=== PATIENT | female | born 1995 | race African-American/Black ===

== ENCOUNTER 2019-02-12 17:47 | Emergency (ER) | payer SELFPAY ==
[~2019-02-12] VITALS: Ht 162.6 cm; Wt 72.6 kg
--- OUTSIDE RECORDS SUMMARY | 2019-02-12 17:50 | XMS REPORT | Clinical Summary ---
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 Active ferrous sulfate 325 mg Take 1 tablet 90 tablet 3 (65 mg iron) by mouth 8 tabletIndications: Anemia daily (with in , first breakfast). trimester Active xrodulmmk-yfcskbyg-xvwegx Take 30 mL by 100 mL 1 quang-simethicone (MAALOX mouth every 4 9 +) 200 mg hours as SuspIndications: Bilious needed for vomiting with nausea Pain. Active famotidine (PEPCID) 40 mg Take 1 tablet 30 tablet 1 tabletIndications: by mouth 9 Bilious vomiting with daily. nausea Active acetaminophen (TYLENOL) Take 1 tablet 30 tablet 0 500 mg tabletIndications: by mouth 9 Bilious vomiting with every 6 hours nausea as needed for Pain. Active 1 mL diphenhydrAMINE Take 10 mL by 100 mL 1 syrup-1 mL lidocaine mouth 3 times 9 mucosal solution-1 mL daily. bfdroqnlv-zffpauin-ykfoub quang-simethicone oral suspension-CMPDIndication s: Bilious vomiting with nausea Active Electric Breast Use as 1 Each 0 PumpIndications: High directed. 9 risk , antepartum 03/19/2018 Discontinued OIS57-tkmp Take 1 tablet 180 Each 3 carb,tmo-FJ-EVD-dha 90 mg and 1 capsule 6 iron-1 mg -50 mg-300 mg by mouth CmpkIndications: daily. care, first trimester 03/19/2018 Discontinued vitamin Take 1 tablet 30 tablet 6 (PRENATABS RX) by mouth 6 tabletIndications: daily. care, second trimester 03/19/2018 Discontinued vitamin Take 1 tablet 30 tablet 6 tabletIndications: Rh by mouth 6 negative status during daily , third Pharmacist trimester, 32 weeks may select gestation of any Vitamin product covered on the patient's insurance for new rxs and refills. 03/19/2018 Discontinued MOSQUITO REPELLANT (OFF [place] 1 Bottle 11 DEEP [place]) topical topically as 6 sprayIndications: Rh directed for negative status during the , third prevention of trimester, 36 weeks Zika virus. gestation of 03/19/2018 Discontinued ibuprofen (MOTRIN) 800 mg Take 1 tablet 300 tablet 0 tabletIndications: by mouth 6 Vaginal delivery every 8 hours as needed for Pain. 03/26/2018 metroNIDAZOLE (FLAGYL) Take 1 tablet 14 tablet 0 500 mg tabletIndications: by mouth 2 8 Retained tampon, initial times daily encounter for 7 days. 06/28/2018 ondansetron (ZOFRAN) 8 mg Take 1 tablet 20 tablet 1 tabletIndications: Nausea by mouth 8 and vomiting during every 8 hours prior to 22 as needed for weeks gestation up to 3 days for Nausea. 11/15/2018 metroNIDAZOLE (FLAGYL) Take 1 tablet 21 tablet 0 250 mg tabletIndications: by mouth 3 9 BV (bacterial vaginosis) times daily for 7 days. 11/15/2018 terconazole (TERAZOL 7) Insert 1 45 g 0 0.4 % vaginal applicatorful 9 creamIndications: Yeast vaginally vaginitis every night at bedtime for 7 days.. 12/30/2018 ondansetron (ZOFRAN) 4 mg Take 1 tablet 20 tablet 0 tabletIndications: by mouth 9 Bilious vomiting with every 8 hours nausea as needed for up to 7 days for Nausea. 01/22/2019 docusate sodium (COLACE) Take 1 60 capsule 1 100 mg capsule by 9 capsuleIndications: mouth 2 times Bilious vomiting with daily for 60 nausea doses. Status Hospital, Clinic, or Ordered Dose Route Frequency Start End Date Other Facility Date Administered Medication Ended cefTRIAXone (ROCEPHIN) 250 mg IM ONCE 03/19/20 injection 250 18 8 mgIndications: Retained tampon, initial encounter Ended lidocaine 1 % (XYLOCAINE) 1 mL IJ ONCE 03/19/20 injection 1 18 8 mLIndications: Retained tampon, initial encounter Active Problems Problem Noted Date with 39 completed weeks gestation 02/06/2019 Resolved-BV (bacterial vaginosis) 11/08/2018 Overview: 11/08/18-RX for flagyl to pharmacy of choice 11/20/2018 Denies sx Resolved-Yeast vaginitis 11/08/2018 Overview: 11/08/18-Rx for terazol 11/20/2018 Denies sx Anemia in 06/28/2018 Overview: 09/03/18 Pt not taking PNV or iron, states it makes her nauseated. Counseled on risks of anemia 11/20/2018 Fe daily, CBC today 11/21/18-anemia worse, hemoglobin decreased; increased iron to three times daily 12/02/2018 Increase bid or tid as tolerated. Fe studies, Hg Fx Ferritin 10.60, Retic ct 3.4, Fe 21, TIBC 728, %sat 3, folic acid nl Hg Fx wnl 02/06/2019 Pt reports compliance with BID fe . Lapse in care from 33 weeks , now 39 weeks gestation Resolved-Nausea and vomiting during prior to 22 weeks gestation 06/25/2018 Overview: 06/25/18-RX for zofran with instructions; discussed vitamn B6, ER warnings 11/20/2018 Denies sx Rh negative status during 04/20/2016 Overview: 11/20/2018 27w6d T&S Bneg/ABS neg RTC 11/26/18 for Rhig 12/02/2018 29w4d Rhig given H/O Abnormal antibody titer 01/19/2016 Overview: Anti M Titer monthly and if >1:16 for Dopplers and MCA f/u 02/16/16 too weak to titer 06/25/2018 Antibody screen positive , Anti-M With no mention of titer . Will repeat Antibody screen in 1 month 07/16/2018 B RH ( -) , Antibody screen Negative , Comments from the Blood Bank , The antibody screening was negative at this time. However, titer for Anti M was still performed due to the order. In general, Anti M is an IgM, not clinial significant antibody, and will not cross placenta. Therefore, titer for Anti M will not be indicated 09/03/18 ABS neg 11/20/18 Neg Depression affecting , antepartum 01/19/2016 Overview: 06/25/18- denies depression, ER warnings 11/20/2018 Feeling depressed intermittently, occas crying spells, sadness. Denies S/H ideation. Accepts Beh Therapy referral. Imminent lab appt prevented administration of EPDS. 12/02/18 EPDS 9 Beh Therapy 12/04/18-desires rescheduling. Feeling sad due to injury of infant in her apt complex. Denies sx of depression. Seen by OB Sharif 12/30/18 Stats occasionally irritable and tearful, declines referral to behavioral health Anxiety disorder 10/26/2014 Overview: 06/25/18-some anxiety, able to cope, to notify clinic if becomes a problems 10/02/18-anxiety is under control Estimated Date of Delivery Comments Yes 02/13/2019 Based on last menstrual period of 05/09/2018 (Exact Date) Resolved Problems Problem Noted Date Resolved Date Refused influenza vaccine 12/02/2018 12/30/2018 BMI 28.0-28.9,adult 06/25/2018 09/03/2018 High-risk 06/25/2018 12/30/2018 Vaginal delivery 06/16/2016 06/25/2018 GBS (group B Streptococcus carrier), +RV culture, currently 05/22/2016 06/25/2018 care 11/16/2015 06/25/2018 Overview: Check for medical release papers, did she get them?? Encounters Care Team Description Date Type Specialty 02/11/2019 Travel Anderson-Grace Adames RN 02/11/2019 Nurse Triage Arminda Pineda CNM care in third trimester 02/07/2019 Orders Only Obstetrics Deanna Dumont CNM Harden, Monica E, CNM Anemia during in third trimester (Primary Dx); Rh negative status during in third trimester; Depression affecting , antepartum; with 39 completed weeks gestation 02/06/2019 OB Obstetrics 02/06/2019 Arminda Vazquez CNM care in third trimester (Primary Dx) 01/22/2019 Orders Only Obstetrics Deanna Dumont CNM Tigner, Caroline C, CNM High risk , antepartum (Primary Dx); Rh negative status during in third trimester; Anemia during in third trimester; Depression affecting , antepartum; 33 weeks gestation of 12/30/2018 OB Obstetrics Claudette Cristina MD Bilious vomiting with nausea (Primary Dx) 12/23/2018 Hospital Obstetrics Encounter 12/23/2018 Deanna Burkett CNM Scott, Moncellia Djuana, RN 12/02/2018 OBS Navigation Visit Deanna Dumont CNM Antepartum anemia (Primary Dx); 29 weeks gestation of ; Rh negative, antepartum; Depression affecting , antepartum; Refused influenza vaccine 12/02/2018 OB Obstetrics Deanna Dumont CNM Antepartum anemia; 29 weeks gestation of ; Rh negative, antepartum 12/02/2018 Orders Only Obstetrics 12/02/2018 Travel Verna Miller CNM Abnormal Labs (please have pt increase iron supplement to three times daily) 11/21/2018 Telephone Obstetrics Deanna Dumont CNM Rh negative, antepartum (Primary Dx); 27 weeks gestation of ; Depression affecting , antepartum; Antepartum anemia 11/20/2018 OB Obstetrics Deanna Dumont CNM , high-risk, second trimester; Rh negative, antepartum 11/20/2018 Lab Appointment Lab Deanna Dumont CNM Depression affecting , antepartum 11/20/2018 Orders Only Obstetrics Deanna Dumont CNM Rh negative, antepartum (Primary Dx); Antepartum anemia 11/20/2018 Orders Only Obstetrics Verna Miller CNM Abnormal Labs (has BV and yeast; will send flagyl 250mg po to be take three times daily and terazol vaginal cream to be used nightly x 7 nights) 11/08/2018 Telephone Verna Borges CNM 11/08/2018 Orders Only Obstetrics Deanna Dumont CNM Scott, Moncellia Djuana, RN 10/31/2018 OBS Navigation Visit Deanna Dumont, Verna Madrigal CNM , high-risk, second trimester (Primary Dx); Rh negative status during in second trimester; Anemia during in second trimester; 25 weeks gestation of ; Vaginal discharge in in second trimester 10/31/2018 OB Obstetrics 10/31/2018 Travel Deanna Dumont, Verna Madrigal, STEVEN Anemia during in second trimester (Primary Dx); Anxiety disorder, unspecified type; 20 weeks gestation of ; Rh negative status during in second trimester; 2014 Abnormal antibody titer M 2015 too week to titer and 06/25/18 positive Anti- M with no mention of titer 10/02/2018 OB Obstetrics 10/02/2018 Travel 09/30/2018 Eduarda Rojas, RN 09/30/2018 Nurse Triage Yonathan Rai MD Carpenter, Robert J Jr., MD screening for malformation using ultrasonics (Primary Dx); Anemia during in second trimester; , high-risk, second trimester; with 19 completed weeks gestation 09/19/2018 Office Visit Obstetrics Alejandra Haddad, RN 09/11/2018 Nurse Triage Deanna Dumont, Millie Weathers CNM Anemia during in second trimester (Primary Dx); 16 weeks gestation of 09/03/2018 OB Obstetrics 09/03/2018 Arminda Vazquez CNM Rh negative status during in second trimester (Primary Dx) 08/08/2018 Orders Only Obstetrics Arminda Pineda CNM Rh negative status during in first trimester (Primary Dx); Nausea and vomiting during prior to 22 weeks gestation; , high-risk, first trimester; with 12 completed weeks gestation; 2014 Abnormal antibody titer M 2015 too week to titer and 06/25/18 positive Anti- M with no mention of titer ; Anemia in , first trimester 08/06/2018 OB Obstetrics Elizabeth Madison MD Lucas, Michael J, MD care in first trimester (Primary Dx); Rh negative status during in first trimester 07/16/2018 Ancillary Radiology Procedure Verna Miller, Arminda Felton, STEVEN Anemia in , first trimester (Primary Dx); Abnormal antibody titer / 06/25/18 positive Anti-M , no mention of titer ; Rh negative status during in first trimester; Nausea and vomiting during prior to 22 weeks gestation; with 8 completed weeks gestation 07/09/2018 OB Obstetrics Arminda Pineda CNM Abnormal antibody titer / 06/25/18 positive Anti-M , no mention of titer 07/09/2018 Orders Only Obstetrics Arminda Pineda CNM Rh negative status during in first trimester (Primary Dx) 07/08/2018 Orders Only Obstetrics Verna Miller CNM Anemia (please call pt and have her buy ferrous sulfate 325mg tabs and take 1 daily) 06/28/2018 Telephone Verna Miller CNM , high-risk, first trimester 06/25/2018 Lab Appointment Lab Deanna Dumont CNM Hudgins, Margaret A, CNM , high-risk, first trimester (Primary Dx); BMI 28.0-28.9,adult; 6 weeks gestation of ; Nausea and vomiting during prior to 22 weeks gestation 06/25/2018 OB Obstetrics Jane Walker, [employer] Amenorrhea (Primary Dx) 06/17/2018 OB Samir Garrison MD Veloz, Jessica, TAINA Vaginal discharge (Primary Dx); Retained tampon, initial encounter; Subconjunctival hemorrhage of left eye 03/19/2018 Same Day Family Practice after 02/11/2018 Immunizations Name Administration Dates Next Due Rhogam 12/02/2018 Tdap (Tetanus Toxoid, 12/30/2018 Reduced Diphtheria Toxoid And Acellular Pertussis, Absorbed) Tdap Tetanus, diphtheria, 04/20/2016 acellular pertussis Vaccine Family History Medical History Relation Name Comments Hypertension Mother Stroke Mother Asthma Sister Relation Name Status Comments Brother Alive Brother Alive Father Alive Maternal Grandfather Maternal Grandmother Alive Mother Alive Paternal Grandfather Paternal Grandmother Alive Sister Alive Sister Alive Sister Alive Sister Social History Date Tobacco Use Types Packs/Day Years Used Never Smoker Smokeless Tobacco: Never Used Tobacco Cessation: Counseling Given: No Drinks/Week oz/Week Comments Alcohol Use 0 Standard drinks or equivalent 0.0 No Estimated Date of Delivery Comments Yes 02/13/2019 Based on last menstrual period of 05/09/2018 (Exact Date) Sex Assigned at Date Recorded Not on file Industry Job Start Date Occupation Not on file Not on file Not on file Travel End Travel History Travel Start No recent travel history available. Last Filed Vital Signs Reading Time Taken Comments Vital Sign 121/78 02/06/2019 1:56 PM CDT Blood Pressure 90 02/06/2019 1:56 PM CDT Pulse 36.9 C (98.5 F) 02/06/2019 1:56 PM CDT Temperature 20 02/06/2019 1:56 PM CDT Respiratory Rate 98% 12/23/2018 4:22 AM CDT Oxygen Saturation - - Inhaled Oxygen Concentration 83.5 kg (184 lb) 02/06/2019 1:56 PM CDT Weight 167.6 cm (5' 6") 02/06/2019 1:56 PM CDT Height 29.7 02/06/2019 1:56 PM CDT Body Mass Index Plan of Treatment Care Team Description Date Type Specialty 02/13/2019 Hospital Obstetrics Encounter confirmed 02/13/2019 Office Visit Obstetrics Health Maintenance Due Date Last Done Comments Cervical Cancer Scrn (3 01/28/2017 Yrs) HEMS OB HIV SCREENING Completed 12/30/2018, 06/25/2018, 04/20/2016, SERIES Additional history exists Procedures Comments Procedure Name Priority Date/Time Associated Diagnosis GROUP B STREP CULTURE Routine 02/07/2019 care in third 2:14 PM CDT trimester CHLAM/GC DNA AMPLI Routine 02/07/2019 care in third 2:14 PM CDT trimester SYPHILIS SCREEN FOR Routine 12/30/2018 High risk , INFECTION 2:57 PM CDT antepartum HIV-1/HIV-2 Routine 12/30/2018 High risk , SCREENING 2:57 PM CDT antepartum U/S ABDOMEN STAT 12/23/2018 Bilious vomiting with 9:25 AM CDT nausea UA CHEMISTRIES Routine 12/23/2018 5:20 AM CDT URINE DRUG SCREEN STAT 12/23/2018 5:20 AM CDT CBC/DIFF STAT 12/23/2018 4:30 AM CDT AMYLASE STAT 12/23/2018 4:30 AM CDT LIPASE STAT 12/23/2018 4:30 AM CDT COMPREHENSIVE METABOLIC STAT 12/23/2018 PANEL(DBIL NOT INCLUDED) 4:30 AM CDT RETIC COUNT Routine 12/02/2018 Antepartum anemia 2:32 PM CDT IRON PROFILE Routine 12/02/2018 Antepartum anemia 2:32 PM CDT HGB FRACTIONATION Routine 12/02/2018 Antepartum anemia 2:32 PM CDT FERRITIN Routine 12/02/2018 Antepartum anemia 2:32 PM CDT RBC FOLIC ACID Routine 12/02/2018 Antepartum anemia 2:27 PM CDT WORKUP (ABO, RH Routine 11/20/2018 Rh negative, antepartum AND SCREEN) 11:33 AM [employer]ASSWIND INSTRUMENT REPAIRER HEP C VIR AB IGG Routine 11/20/2018 , high-risk, 10:41 AM [employer] INSTRUMENT REPAIRER second trimester CBC Routine 11/20/2018 , high-risk, 10:41 AM [employer]WIND INSTRUMENT REPAIRER second trimester GLU 1 HR POST 50GM Routine 11/20/2018 , high-risk, 10:37 AM [employer]WIND INSTRUMENT REPAIRER second trimester WET MOUNT Routine 10/31/2018 Vaginal discharge in 2:10 PM [employer]WIND INSTRUMENT REPAIRER in second trimester NORMA STAIN Routine 10/31/2018 Vaginal discharge in 2:09 PM [employer]WIND INSTRUMENT REPAIRER in second trimester BT MFM Routine 09/19/2018 Anemia during REFERRAL-OUTPATIENT 8:43 AM [employer]WIND INSTRUMENT REPAIRER in second trimester WORKUP (ABO, RH Routine 09/03/2018 Anemia during AND SCREEN) 10:19 AM [employer]WIND INSTRUMENT REPAIRER in second trimester MATERNAL SERUM QUADRUPLE Routine 09/03/2018 Anemia during SCREEN( FEMALES OF 10:14 AM BRASSWIND INSTRUMENT REPAIRER in second trimester CHILDBEARING AGE ONLY) ANTIBODY TITER ( Routine 07/16/2018 Abnormal antibody titer / RELATED INDICATION) 1:48 PM CDT 06/25/18 positive Anti-M , no mention of titer BT MFM Routine 07/16/2018 Rh negative status during REFERRAL-OUTPATIENT 10:34 AM CDT in first trimester HIV-1/HIV-2 Routine 06/25/2018 , high-risk, SCREENING 12:18 PM CDT first trimester SYPHILIS SCREEN FOR Routine 06/25/2018 , high-risk, INFECTION 12:18 PM CDT first trimester CBC/DIFF Routine 06/25/2018 , high-risk, 12:18 PM CDT first trimester RUBELLA, IGG Routine 06/25/2018 , high-risk, 12:18 PM CDT first trimester HEP B HENNY AG Routine 06/25/2018 , high-risk, 12:18 PM CDT first trimester WORKUP (ABO, RH Routine 06/25/2018 , high-risk, AND SCREEN) 12:13 PM CDT first trimester URINE CULTURE Routine 06/25/2018 , high-risk, 12:13 PM CDT first trimester UA CHEMISTRIES Routine 06/25/2018 , high-risk, 12:12 PM CDT first trimester BTGH CYTOLOGY Routine 06/25/2018 11:15 AM CDT CHLAM/GC DNA AMPLI Routine 06/25/2018 , high-risk, 11:13 AM CDT first trimester POC URINE DIPSTICK, Routine 03/19/2018 Vaginal discharge WITHOUT MICRO 7:30 PM CDT CHLAM/GC DNA AMPLI Routine 03/19/2018 7:25 PM CDT TRICHOMONAS VAGINALIS Routine 03/19/2018 Vaginal discharge 7:25 PM CDT POC URINE Routine 03/19/2018 Vaginal discharge 7:16 PM CDT after 02/11/2018 Results * CHLAM/GC DNA AMPLI (02/07/2019 2:14 PM CDT) Only the most recent of 3 results within the time period is included. Chlamydia trach Negative BT DIAGNOSTIC IMMUNOLOGY N gonorrhoeae Negative BT DIAGNOSTIC This test utilizes [employer] Aptima Combo 2 Assay for target amplification of rRNA for the qualitative detection of Chlamydia trachomatis and Neisseria gonorrhea. Spec VAGINAL SWAB [facility] Description LAB Specimen Genital, vaginal - Vaginal Swab Performing Organization Address [facility] Phone Number MISYS BT DIAGNOSTIC IMMUNOLOGY [facility] * GROUP B STREP CULTURE (02/07/2019 2:14 PM CDT) Spec Vaginal_rectal [facility] Description LAB Order Comments None [facility] Culture No Group B Streptococcus BT MICROBIOLOGY isolated Report Status Final 02/12/2019 BT MICROBIOLOGY Specimen Genital - VAGINAL/RECTAL Performing Organization Address [facility] Phone Number MISYS [facility] BT MICROBIOLOGY * SYPHILIS SCREEN FOR INFECTION (12/30/2018 2:57 PM CDT) Only the most recent of 2 results within the time period is included. Treponemal Ab Negative BT DIAGNOSTIC IMMUNOLOGY Final Report Negative BT DIAGNOSTIC IMMUNOLOGY Specimen Performing Organization Address [facility] Phone Number MISYS BT DIAGNOSTIC IMMUNOLOGY * HIV-1/HIV-2 SCREENING (12/30/2018 2:57 PM CDT) Only the most recent of 2 results within the time period is included. HIV-1/HIV-2 Negative NEG BT OUTPATIENT DRAW 2 Specimen Performing Organization Address [facility] Phone Number MISYS BT OUTPATIENT DRAW 2 * U/S ABDOMEN (12/23/2018 9:25 AM CDT) Specimen Impressions Performed At IMPRESSION: SMS 1.Cholelithiasis and sludge and positive Fraga's sign, consistent with acute cholecystitis. 2.Mild hepatomegaly. Dictated By: Cristhian Massey DO, 12/23/2018 10:38 AM I have reviewed the study and agree with the findings in this report. Signed By: Bean Selby MD, 12/23/2018 3:36 PM Narrative Performed At EXAM: Complete Abdominal Ultrasound SMS INDICATION: RUQ pain, bilious emesis COMPARISON: None. TECHNIQUE: Transverse and longitudinal images of the upper abdomen were obtained. FINDINGS: Liver: Size: 17.0 cm in the right midclavicular line, enlarged. Appearance: Normal echogenicity, smooth contour Mass: No focal masses Spleen: Size: 12.0 cm in length, normal Echogenicity: Normal Mass: No focal masses Gallbladder: Stones/Sludge: Layering of dependent small stones near gallbladder neck producing posterior shadowing accompanied by sludge. Wall: 0.15 cm Appearance: No pericholecystic fluid or hydrops. Sonographic Fraga's Sign: Positive Bile Ducts: Intrahepatic Ducts: No dilatation Extrahepatic Ducts: Common bile duct measures 0.2 cm, no dilatation Pancreas: Visualized portions of the pancreatic head, neck and proximal body are normal. Right Kidney: Size:11.6 cm Echogenicity:Normal Parenchymal thickness: Normal Collecting System:Mild hydronephrosis Stone:None Cyst/Mass: None Left Kidney: Size: 11.6 cm Echogenicity:Normal Parenchymal thickness: Normal Collecting System:No hydronephrosis Stone:None Cyst/Mass: None Vessels: Aorta: Visualized portions are normal Inferior Vena Cava: Visualized portions are normal Main Portal Vein: 1.13 cm, normal size with hepatopetal flow. Free Fluid: No ascites or pleural effusion Procedure Note Interface, Rad/Mammog In - 12/23/2018 3:41 PM CDT EXAM: Complete Abdominal Ultrasound INDICATION: RUQ pain, bilious emesis COMPARISON: None. TECHNIQUE: Transverse and longitudinal images of the upper abdomen were obtained. FINDINGS: Liver: Size: 17.0 cm in the right midclavicular line, enlarged. Appearance: Normal echogenicity, smooth contour Mass: No focal masses Spleen: Size: 12.0 cm in length, normal Echogenicity: Normal Mass: No focal masses Gallbladder: Stones/Sludge: Layering of dependent small stones near gallbladder neck producing posterior shadowing accompanied by sludge. Wall: 0.15 cm Appearance: No pericholecystic fluid or hydrops. Sonographic Fraga's Sign: Positive Bile Ducts: Intrahepatic Ducts: No dilatation Extrahepatic Ducts: Common bile duct measures 0.2 cm, no dilatation Pancreas: Visualized portions of the pancreatic head, neck and proximal body are normal. Right Kidney: Size: 11.6 cm Echogenicity: Normal Parenchymal thickness: Normal Collecting System: Mild hydronephrosis Stone: None Cyst/Mass: None Left Kidney: Size: 11.6 cm Echogenicity: Normal Parenchymal thickness: Normal Collecting System: No hydronephrosis Stone: None Cyst/Mass: None Vessels: Aorta: Visualized portions are normal Inferior Vena Cava: Visualized portions are normal Main Portal Vein: 1.13 cm, normal size with hepatopetal flow. Free Fluid: No ascites or pleural effusion IMPRESSION IMPRESSION: 1. Cholelithiasis and sludge and positive Fraga's sign, consistent with acute cholecystitis. 2. Mild hepatomegaly. Dictated By: Cristhian Massey DO, 12/23/2018 10:38 AM I have reviewed the study and agree with the findings in this report. Signed By: Bean Selby MD, 12/23/2018 3:36 PM Performing Organization Address [facility]/[employer] Phone Number SMS * UA CHEMISTRIES (12/23/2018 5:20 AM CDT) Only the most recent of 2 results within the time period is included. Color Yellow BT MAIN-STATION 2 Clarity Cloudy BT MAIN-STATION 2 Spec Ambia 1.023 1.001 - 1.035 BT MAIN-STATION 2 pH 8.0 5 - 8 BT MAIN-STATION 2 Protein 2+ (A) NEG BT MAIN-STATION 2 Glucose Negative NEG BT MAIN-STATION 2 Ketone 1+ (A) NEG BT MAIN-STATION 2 Bilirubin Negative NEG BT MAIN-STATION 2 Nitrate Negative NEG BT MAIN-STATION 2 Urobilinogen 2.0 (H) 0.2 - 1.0 EU/dL BT MAIN-STATION 2 Leukocyte 3+ (A) NEG BT MAIN-STATION 2 Blood Negative NEG BT MAIN-STATION 2 RBC 29 (H) 0 - 4 /HPF BT MAIN-STATION 2 WBC 19 (H) 0 - 5 /HPF BT MAIN-STATION 2 Bacteria Many BT MAIN-STATION 2 Epithelial Cell 51 /HPF BT MAIN-STATION 2 Amorphous Sed Present BT MAIN-STATION 2 Mucous Present BT MAIN-STATION 2 Specimen Performing Organization Address [facility] Phone Number MISYS BT MAIN-STATION 2 * URINE DRUG SCREEN (12/23/2018 5:20 AM CDT) Amphetamine Negative NEG BT MAIN-STATION Comment: 1 Calibrated Standard: D-Methamphetamine Positive if urine level >jo=7297 ng/mL Test performed on [id number] using EMIT Immunoassay Barbiturate Negative NEG BT MAIN-STATION Comment: 1 Calibrated Standard: Secobarbital Positive if urine level is >ul=153 ng/mL Test performed on [id number] using [employer] Immunoassay Benzodiazepine Negative NEG BT MAIN-STATION Comment: 1 Calibrated Standard: Lormethazepam Positive if urine level is >nc=633 ng/mL Test performed on [id number] using [employer]IT Immunoassay Cannabinoid Negative NEG BT MAIN-STATION Comment: 1 Calibrated Standard: 11 nor-delta(9)-THC carboxylic a Positive if urine level >or=50 Test performed on [id number] using EMIT Immunoassay Cocaine Negative NEG BT MAIN-STATION Comment: 1 Calibrated Standard: Benzoylecgonine Positive if urine level >ug=893 Test performed on [id number] using EMIT Immunoassay Opiate, Ur Negative NEG BT MAIN-STATION Comment: 1 Calibrated Standard: Morphine Positive if urine level >pc=754 Test performed on [id number] using EMIT Immunoassay PCP Negative NEG BT MAIN-STATION Comment: 1 Calibrated Standard: Phencyclidine Positive if urine level >or=25 Test performed on [id number] using EMIT Immunoassay Urine Toxicology Screen results are to be used only for Medical purposes. Specimen Urine Performing Organization Address City/State/Zipcode Phone Number MISYS BT MAIN-STATION 1 * COMPREHENSIVE METABOLIC PANEL(DBIL NOT INCLUDED) (12/23/2018 4:30 AM CDT) Albumin 3.5 (L) 3.7 - 5.3 g/dL BT MAIN-STATION 1 Calcium 8.9 8.6 - 10.3 mg/dL BT MAIN-STATION 1 CO2 23 21 - 31 mmol/L BT MAIN-STATION 1 Chloride 104 98 - 107 mmol/L BT MAIN-STATION 1 Creatinine 0.50 (L) 0.6 - 1.2 mg/dL BT MAIN-STATION 1 Glucose 90 70 - 110 mg/dL BT MAIN-STATION 1 Alk Phos 86 34 - 104 U/L BT MAIN-STATION 1 Potassium 3.3 (L) 3.5 - 5.1 mmol/L BT MAIN-STATION 1 Sodium 137 136 - 145 mmol/L BT MAIN-STATION 1 ALT 12 7 - 52 U/L BT MAIN-STATION 1 AST 19 13 - 39 U/L BT MAIN-STATION 1 Urea Nitrogen 4 (L) 7 - 25 mg/dL BT MAIN-STATION 1 T Bilirubin 0.5 0.2 - 1.2 mg/dL BT MAIN-STATION 1 T Protein 6.9 6.0 - 8.3 g/dL BT MAIN-STATION 1 GFR, Estimated >60 mL/min/1.73 m2 BT MAIN-STATION 1 GFR, Estim, >60 mL/min/1.73 m2 BT MAIN-STATION Afr-Am 1 Anion Gap 10 BT MAIN-STATION 1 Specimen Blood Performing Organization Address City/State/Zipcode Phone Number [facility]ISYS BT MAIN-STATION 1 * LIPASE (12/23/2018 4:30 AM CDT) Lipase 49 11 - 82 U/L BT MAIN-STATION 1 Specimen Blood Performing Organization Address City/State/Zipcode Phone Number MISYS BT MAIN-STATION 1 * CBC/DIFF (12/23/2018 4:30 AM CDT) Only the most recent of 2 results within the time period is included. WBC 11.3 (H) 4.5 - 11.0 K/uL BT MAIN-STATION 2 RBC 3.46 (L) 4.20 - 5.40 M/uL BT MAIN-STATION 2 Hemoglobin 8.1 (L) 12.0 - 16.0 g/dL BT MAIN-STATION 2 Hematocrit 28.6 (L) 37.0 - 47.0 % BT MAIN-STATION 2 MCV 83 82 - 92 fL BT MAIN-STATION 2 MCH 23.4 (L) 27.0 - 32.0 pg BT MAIN-STATION 2 MCHC 28.3 (L) 32.0 - 36.0 g/dL BT MAIN-STATION 2 RDW 45.1 36.4 - 46.3 fL BT MAIN-STATION 2 Platelet 285 150 - 400 K/uL BT MAIN-STATION 2 Mean Platelet 9.4 9.4 - 12.4 fL BT MAIN-STATION Volume 2 Percent NRBC 0.0 BT MAIN-STATION 2 Absolute NRBC 0.00 BT MAIN-STATION 2 Neutrophil 59.2 34.0 - 70.0 % BT MAIN-STATION 2 Lymphocyte 29.9 20.0 - 50.0 % BT MAIN-STATION 2 Monocyte 6.6 5.0 - 12.0 % BT MAIN-STATION 2 Eosinophil 3.7 0.7 - 5.0 % BT MAIN-STATION 2 Basophil 0.2 0.1 - 1.2 % BT MAIN-STATION 2 Pct Immat Gran 0.4 0.0 - 0.5 BT MAIN-STATION 2 Neutrophil, Abs 6.67 (H) 1.56 - 6.13 K/uL BT MAIN-STATION 2 Lymphocyte, Abs 3.36 1.18 - 3.74 K/uL BT MAIN-STATION 2 Monocyte, Abs 0.74 (H) 0.24 - 0.36 K/uL BT MAIN-STATION 2 Eosinophil, Abs 0.42 (H) 0.04 - 0.36 K/uL BT MAIN-STATION 2 Basophil, Abs 0.02 0.01 - 0.08 K/uL BT MAIN-STATION 2 Absol Immat 0.04 (H) 0.00 - 0.03 K/uL BT MAIN-STATION Gran 2 Specimen Performing Organization Address [facility] Phone Number [facility] BT MAIN-STATION 2 * AMYLASE (12/23/2018 4:30 AM CDT) Amylase 64 29 - 103 U/L BT MAIN-STATION 1 Specimen Blood Performing Organization Address [facility] Phone Number [facility] BT MAIN-STATION 1 * FERRITIN (12/02/2018 2:32 PM CDT) Ferritin 10.60 (L) 11.0 - 306.8 ng/mL BT MAIN-STATION 1 Specimen Blood Performing Organization Address [facility] Phone Number [facility] BT MAIN-STATION 1 * RETIC COUNT (12/02/2018 2:32 PM CDT) Retic Count 3.4 (H) 0.5 - 1.7 % BT MAIN-STATION 2 Immature Retic 36.5 (H) 3.0 - 15.9 % BT MAIN-STATION 2 Ret Hgb 23.80 (L) 30.8 - 36.6 pg BT MAIN-STATION Equivalent 2 Absolute Retic 0.12 (H) 0.02 - 0.08 M/uL BT MAIN-STATION 2 Specimen Blood Performing Organization Address [facility] Phone Number [facility] BT MAIN-STATION 2 * IRON PROFILE (12/02/2018 2:32 PM CDT) Iron 21 (L) 50 - 212 ug/dL BT MAIN-STATION 1 TIBC 728 (H) 250 - 450 ug/dL BT MAIN-STATION 1 % Iron Sat 3 % BT MAIN-STATION 1 Specimen Blood Performing Organization Address [facility] Phone Number [facility] BT MAIN-STATION 1 * HGB FRACTIONATION (12/02/2018 2:32 PM CDT) Hemoglobin A 97.7 96.0 - 98.6 % BT BLOOD BANK Hemoglobin F None detected <2 % BT BLOOD BANK Hemoglobin S Absent % BT BLOOD BANK Hemoglobin A2 2.3 2.2 - 3.7 % BT BLOOD BANK Hemoglobin C Absent % BT BLOOD BANK Interpretation (note) BT BLOOD BANK Hemoglobin capillary electrophoresis and RBC indices are reviewed. NO VARIANT HEMOGLOBIN ORTHALASSEMIA DETECTED. Reviewed and electronically signed by: Josee Ferris MD/ [id number] CPT: 74106 Specimen Blood Performing Organization Address City/[facility] Phone Number [facility] * RBC FOLIC ACID (12/02/2018 2:27 PM CDT) Pathologist [facility] RBC Folic Acid 1401 LABORATORY Reference range: >498 [facility]PORATION OF Unit: ng/mL [facility] Hematocrit 27.8 LABORATORY Reference range: 34.0 to 46.6 [facility]PORATION OF Unit: % [facility] Folate, 389.6 LABORATORY Hemolysate Reference range: Not Estab. CORPORATION OF Unit: ng/mL [facility] Specimen Blood bag - BLOOD Performing Organization Address [facility] Phone Number [facility] [address] [place] [address] [place] 145 * HEP C VIR AB IGG (11/20/2018 10:41 AM [employer]ASS[employer] INSTRUMENT REPAIRER) Pathologist [facility] HCV IgG Negative NEG BT MAIN-STATION 3 Specimen Blood Performing Organization Address [facility] Phone Number [facility] BT MAIN-STATION 3 * CBC (11/20/2018 10:41 AM [employer] INSTRUMENT REPAIRER) WBC 11.4 (H) 4.5 - 11.0 K/uL BT MAIN-STATION 2 RBC 3.48 (L) 4.20 - 5.40 M/uL BT MAIN-STATION 2 Hemoglobin 8.4 (L) 12.0 - 16.0 g/dL BT MAIN-STATION 2 Hematocrit 29.8 (L) 37.0 - 47.0 % BT MAIN-STATION 2 MCV 86 82 - 92 fL BT MAIN-STATION 2 MCH 24.1 (L) 27.0 - 32.0 pg BT MAIN-STATION 2 MCHC 28.2 (L) 32.0 - 36.0 g/dL BT MAIN-STATION 2 RDW 44.6 36.4 - 46.3 fL BT MAIN-STATION 2 Platelet 350 150 - 400 K/uL BT MAIN-STATION 2 Mean Platelet 10.2 9.4 - 12.4 fL BT MAIN-STATION Volume 2 Percent NRBC 0.0 BT MAIN-STATION 2 Absolute NRBC 0.00 BT MAIN-STATION 2 Specimen Blood Performing Organization Address [facility] Phone Number [facility]IS[facility] BT MAIN-STATION 2 * GLU 1 HR POST 50GM (11/20/2018 10:37 AM [employer] INSTRUMENT REPAIRER) Glu 1Hr Post 96 <140 mg/dL BT MAIN-STATION 50gm 1 Specimen Blood Performing Organization Address [facility] Phone Number [facility] BT MAIN-STATION 1 * WET MOUNT (10/31/2018 2:10 PM [employer] INSTRUMENT REPAIRER) Spec Vaginal [facility] Description LAB Order Comments None [facility] Exam Clue cells present [facility] No Trichomonas seen LAB Yeast Epithelial cells Bacteria present Report Status Final 10/31/2018 [facility] Specimen Genital, vaginal - Vaginal Performing Organization Address [facility] Phone Number MISYS [facility] * NORMA STAIN (10/31/2018 2:09 PM [employer] INSTRUMENT REPAIRER) Spec Vaginal [facility] Description LAB Order Comments None [facility] Direct Exam Yeast [facility] Report Status Final 10/31/2018 [facility] Specimen Genital, vaginal - Vaginal Performing Organization Address [facility] Phone Number MISYS [facility] * BT MFM REFERRAL-OUTPATIENT (09/19/2018 8:43 AM [employer] INSTRUMENT REPAIRER) Only the most recent of 2 results within the time period is included. Specimen Narrative Performed At Click on View Image link for Result SMS Procedure Note Interface, Rad/Mammog In - 09/19/2018 9:58 AM [employer] INSTRUMENT REPAIRER Click on View Image link for Result Performing Organization Address City/[facility] Phone Number SMS * MATERNAL SERUM QUADRUPLE SCREEN( FEMALES OF CHILDBEARING AGE ONLY) (09/03/2018 10:14 AM [employer]ASS[employer] INSTRUMENT REPAIRER) . Report LABORATORY [facility] Test Results: *Screen Negative* LABORATORY [facility] Gestational Age 16.7 LABORATORY Unit: WEEKS [facility] Gest Age Based LMP LABORATORY On [facility] Maternal Age 23.0 LABORATORY SHANAE Unit: yr [facility] Race Black LABORATORY [facility] Weight 179 LABORATORY Unit: lbs [employer] [facility] Ins Dep No LABORATORY Diabetes [facility] Multiple No LABORATORY Gestation [facility] AFP Value 21.6 LABORATORY Unit: ng/mL [facility] AFP MoM 0.62 LABORATORY [facility] hCG Value 17845 LABORATORY Unit: mIU/mL [facility] hCG MoM 0.57 LABORATORY [facility] uE3 Value 1.15 LABORATORY Unit: ng/mL [employer] [facility] uE3 MoM 1.26 LABORATORY [facility] NICOLE Value 108.20 LABORATORY Unit: pg/mL [facility] NICOLE MoM 0.72 LABORATORY [facility] OSBR Risk 1 IN 10,000 LABORATORY [facility] DSR(2nd Trim)1 10,000 LABORATORY IN [employer] [facility] DSR (By Age) 1 1,103 LABORATORY IN [employer] [facility] T18 Risk 126043 Not increased LABORATORY [facility] T18 (By Age) 1:4296 LABORATORY [facility] Interpretation Comment LABORATORY (note) CORPORATION OF Interpretation: Screen [facility] Negative This result is screen negative for OSB, Down Syndrome and Trisomy 18. The AFP MoM and patient specific risks calculated are based on the gestational age and the clinical information provided. This test can identify up to 80% of open neural tube defects. Closed neural tube defects and some open defects may not be detected by this test.The combination of maternal age, AFP, hCG, uE3, and NICOLE identifies 75-80% of Down Syndrome.The combination of maternal age, AFP, hCG and uE3 identifies 60% of Trisomy 18 pregnancies.The [employer] recommends amniocentesis be offered to women age 35 and older. Recalculations are not recommended when gestational dating by LMP and ultrasound are within 10 days. Comment: Comment LABORATORY (note) Ana Malcolm, Ph.D., [facility] [employer] References: Available Upon Request. Multiples Of Median Cutoffs Abbreviation Definitions For AFP Elevations IDD- Insulin Dep Diabetes Singleton2.5 Black2.8 OSBR- Open Spina Bifida IDD2.0 Twins4.5 Risk DSR Cutoff 1:270 DSR- Down Syndrome Risk T18 Cutoff 1:100 T18- Trisomy 18 Down Syndrome and Trisomy 18 screening are considered Investigational For further inquiries contact [facility] at [phone]. Specimen Blood Performing Organization Address City/[facility]/Zipcode Phone Number [facility] [employer] [facility] OF [address] [place] [address] [place] 145 * HEP B HENNY AG (06/25/2018 12:18 PM CDT) HBsAg Negative NEG BT MAIN-STATION 3 Specimen Blood Performing Organization Address [facility] Phone Number [facility] BT MAIN-STATION 3 * RUBELLA, IGG (06/25/2018 12:18 PM CDT) Rubella, IgG 9.6 BT DIAGNOSTIC Non-Immune: < 0.9 IMMUNOLOGY Equivocal: 0.9-0.99 Immune: >or=1.0 Specimen Blood Performing Organization Address [facility] Phone Number [facility] BT DIAGNOSTIC IMMUNOLOGY * URINE CULTURE (06/25/2018 12:13 PM CDT) Spec Clean catch urine [facility] Description LAB Order Comments None [facility] Culture Resembles mixed uro-genital BT MICROBIOLOGY pawan Report Status Final 06/27/2018 BT MICROBIOLOGY Specimen Urine clean catch - CLEAN CATCH URINE Performing Organization Address [facility] Phone Number [facility] BT MICROBIOLOGY * BTGH CYTOLOGY (06/25/2018 11:15 AM CDT) HX FINAL Cervicovaginal (liquid-based COPATH DIAGNOSIS preparation): Satisfactory for evaluation Negative for intraepithelial lesion or malignancy Specimen Narrative Performed At [facility] Date of 1995 Hospital Number [id number] Location [place] [facility] ([facility] CYTOPATHOLOGY Collected:06/25/2018 11:15 Received: 06/26/2018 11:15 FINAL DIAGNOSIS Cervicovaginal (liquid-based preparation): Satisfactory for evaluation Negative for intraepithelial lesion or malignancy Electronically Signed Out By VANE Sultana (ASCP) Clinical History Date of Last Menstrual Period: 05/09/2018 Menstrual History: Pregnancies: A0 Specimen Received: One ThinPrep Vial Educational Note: The pap smear/test is a screening test for cervical cancer.As with screening procedures, both false negative and false positive results may occur.Hence, the results should be interpreted in the context of patient's history and current clinical information. The slide has been analyzed by the automated ThinPrep Imaging System, [employer], [place], [place]. Performing Organization Address City/State/[facility] Phone Number DEBI CARRERA [place], [place] * POC URINE DIPSTICK, WITHOUT MICRO (03/19/2018 7:30 PM CDT) Color POC Dark Yellow - - - Clarity POC Cloudy - - - Spec Ambia >=1.030 1.005 - 1.030 POC pH POC 6.0 5.0 - 7.0 Protein POC Trace Neg - Neg Glucose POC Neg Neg - Neg Ketone POC Trace Neg - Neg Bilirubin POC Neg Neg - Neg Nitrate POC Neg Neg - Neg Urobilinogen 1.0 0.2 - 1.0 EU/dL POC Leukocyte POC Neg Neg - Neg Blood POC 2+ Neg - Neg Specimen Urine * TRICHOMONAS VAGINALIS (03/19/2018 7:25 PM CDT) Trich Vaginalis Negative BT DIAGNOSTIC This test utilizes FDA cleared IMMUNOLOGY APTIMA Trichomonasvaginalis Assay by TMA from [employer] for qualitative nucleic acid amplification test (NAAT) for the detection of ribosome RNA (rRNA) from Trichomonas vaginalis. SPEC Urine BT MAIN-STATION DESCRIPTION 3 Specimen URETHRA Performing Organization Address City/[facility] Phone Number [facility] BT DIAGNOSTIC IMMUNOLOGY BT MAIN-STATION 3 * POC URINE (03/19/2018 7:16 PM CDT) POC Neg Neg - Neg Pass Pass - Pass Control Specimen Urine after 02/11/2018 Insurance Type Payer Benefit Subscriber ID Effective Phone Address Plan / Dates Group [employer] HMO [employer] xxxxxxxxx 2015-P [phone] [address] [address] [place] [address] Advance Directives Date Inactivated Comments Code Status Date Activated 06/16/2016 8:54 PM Full Code 06/15/2016 4:47 AM 06/15/2016 4:47 AM Full Code 06/14/2016 10:55 AM 06/14/2016 10:55 AM Full Code 06/14/2016 10:55 AM
--- OUTSIDE RECORDS SUMMARY | 2019-02-12 17:50 | XMS REPORT | Clinical Summary ---
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 tablet Active ferrous sulfate 325 (65 Take 325 mg 0 FE) MG tablet by mouth daily with breakfast. 10/27/2018 doxylamine-pyridoxine, Take 2 60 tablet 0 vit B6, (DICLEGIS) 10-10 tablets by 9 mg tablet,delayed release mouth daily (DR/EC) delayed release for 30 days. tablet 10/04/2018 nitrofurantoin, Take 1 14 capsule 0 macrocrystal-monohydrate, capsule (100 9 (MACROBID) 100 MG capsule mg total) by mouth 2 (two) times a day for 7 days. Active Problems Comments Yes No additional problems on file Encounters Care Team Description Date Type Specialty Santy Giullen MD Non-intractable vomiting with nausea, unspecified vomiting type (Primary Dx); Acute UTI; Intrauterine 09/27/2018 Emergency Emergency Medicine after 02/11/2018 Social History Date Tobacco Use Types Packs/Day Years Used Never Smoker Smokeless Tobacco: Never Used Alcohol Use Drinks/Week oz/Week Comments No Alcohol Habits Answer Date Recorded How often do you have a drink containing alcohol? Never 09/27/2018 How many drinks containing alcohol do you have on Not asked a typical day when you are drinking? How often do you have six or more drinks on one Not asked occasion? Comments Yes Sex Assigned at Date Recorded Not on file Industry Job Start Date Occupation Not on file Not on file Not on file Travel End Travel History Travel Start No recent travel history available. Last Filed Vital Signs Time Taken Vital Sign Reading 09/27/2018 6:33 AM DATA DEVELOPER Blood Pressure 118/56 09/27/2018 6:33 AM DATA DEVELOPER Pulse 87 09/27/2018 6:33 AM DATA DEVELOPER Temperature 36.7 C (98 F) 09/27/2018 6:33 AM DATA DEVELOPER Respiratory Rate 20 09/27/2018 6:33 AM DATA DEVELOPER Oxygen Saturation 98% - Inhaled Oxygen - Concentration 09/27/2018 4:54 AM DATA DEVELOPER Weight 77.1 kg (170 lb) 09/27/2018 4:54 AM DATA DEVELOPER Height 162.6 cm (5' 4") 09/27/2018 4:54 AM DATA DEVELOPER Body Mass Index 29.18 Plan of Treatment Not on file Procedures Comments Procedure Name Priority Date/Time Associated Diagnosis URINALYSIS STAT 09/27/2018 5:10 AM DATA DEVELOPER GRAM STAIN Routine 09/27/2018 5:00 AM DATA DEVELOPER URINE CULTURE Routine 09/27/2018 5:00 AM DATA DEVELOPER ESTIMATED GFR STAT 09/27/2018 4:50 AM DATA DEVELOPER COMPREHENSIVE METABOLIC STAT 09/27/2018 PANEL 4:50 AM DATA DEVELOPER HC COMPLETE BLD COUNT STAT 09/27/2018 W/AUTO DIFF 4:50 AM DATA DEVELOPER after 02/11/2018 Results * Urinalysis (09/27/2018 5:10 AM DATA DEVELOPER) Glucose, UA Negative Negative [facility] Bilirubin, UA Negative Negative [facility] Ketones, UA 3+ (A) Negative [facility] Specific =>1.030 1.001 - 1.035 [facility] gravity, UA [facility] Blood, UA Small (A) Negative [facility] pH, UA 6.5 5.0 - 8.5 [facility] Protein, UA 1+ (A) Negative [facility] Urobilinogen, 2.0 (A) <2.0 [facility] Nitrite, UA Negative Negative [facility] Leukocyte Small (A) Negative [facility] esterase, UA [facility] Color, UA Yellow [facility] Appearance, UA Sl Cloudy [facility] Specimen Urine Performing Organization Address City/State/Zipcode Phone Number DEPARTMENT [address] [facility], [place] [address] PATHOLOGY AND [employer] [address] [place] [address] LUCAS PEREIRA [address] [facility] [place] [address] EMERGENCY CARE CENTER * Gram stain (09/27/2018 5:00 AM DATA DEVELOPER) Gram stain No WBC's [facility] result Few Gram positive rods JAIN Comment: HOSPITAL Specimen Information Specimen Source: Urine Specimen Site: Urine, clean catch Specimen Urine - Urine, clean catch Performing Organization Address City/[facility] [place] [address] PATHOLOGY AND GENOMIC MEDICINE [place] [address] HOSPITAL * Urine culture (09/27/2018 5:00 AM DATA DEVELOPER) Pathologist [facility] Urine culture Mixed pawan 10-4 col/cc [facility] isolate Comment: [facility] Specimen Information HOSPITAL Specimen Source: Urine Specimen Site: Urine, clean catch Specimen Urine - Urine, clean catch Performing Organization Address City/[facility] Phone Number [facility] [place] [address] PATHOLOGY AND [facility] MEDICINE [place] [address] * Estimated GFR (09/27/2018 4:50 AM DATA DEVELOPER) Pathologist [facility] Estimated GFR >=90 mL/min/1.73 m2 [facility] Comment: LUCAS PEREIRA [facility] G1 >=90 Normal or high G2 60-89Mildly decreased [id number] Mildly to moderately decreased [id number] Moderately to severely decreased G4 15-29Severely decreased G5 <15Kidney failure The eGFR was calculated using the Chronic Kidney Disease Epidemiology Collaboration (CKD-EPI) equation. Interpretation is based on recommendations of the National Kidney Foundation-Kidney Disease Outcomes Quality Initiative (NKF-KDOQI) published in 2014. Specimen Plasma specimen Performing Organization Address City/State/Zipcode Phone Number DEPARTMENT [facility] [facility], [place] [address] PATHOLOGY AND GENOMIC [address] [facility] [address] [facility] [address] [place] [address] EMERGENCY CARE CENTER * CBC with platelet and differential (09/27/2018 4:50 AM DATA DEVELOPER) WBC 10.30 4.50 - 11.00 k/uL [facility] RBC 3.72 (L) 4.20 - 5.50 m/uL [facility] HGB 9.9 (L) 12.0 - 16.0 g/dL [facility] HCT 30.7 (L) 37.0 - 47.0 % [facility] MCV 82.5 82.0 - 100.0 fL [facility] MCH 26.6 (L) 27.0 - 34.0 pg [facility] MCHC 32.2 31.0 - 37.0 g/dL [facility] RDW - SD 37.9 37.0 - 55.0 fL [facility] MPV 8.9 8.8 - 13.2 fL [facility] Platelet count 286 150 - 400 k/uL [facility] Neutrophils 85.0 (H) 39.0 - 69.0 % [facility] Lymphocytes 8.8 (L) 25.0 - 45.0 % [facility] Monocytes 5.0 0.0 - 10.0 % [facility] Eosinophils 1.1 0.0 - 5.0 % [facility] Basophils 0.1 0.0 - 1.0 % [facility] Specimen Blood Performing Organization Address City/State/Zipcode Phone Number DEPARTMENT [address] [place] [address] PATHOLOGY [address] GENOMIC [address] [place], [place] [address] [facility] [address] [place] [address] EMERGENCY CARE CENTER * Comprehensive metabolic panel (09/27/2018 4:50 AM DATA DEVELOPER) Sodium 133 (L) 135 - 148 mEq/L [facility] Potassium 3.8 3.5 - 5.0 mEq/L [facility] Chloride 103 98 - 112 mEq/L [facility] CO2 20 (L) 24 - 31 mEq/L [facility] Anion gap 10@ANIO 7 - 15 mEq/L [facility] BUN 6 6 - 20 mg/dL [facility] Creatinine 0.52 0.50 - 0.90 mg/dL [facility] Glucose 101 (H) 65 - 99 mg/dL [facility] Calcium 9.1 8.3 - 10.2 mg/dL [facility] Protein 7.6 6.3 - 8.3 g/dL [facility] Albumin 3.6 3.5 - 5.0 g/dL [facility] A/G ratio 0.9 0.7 - 3.8 [facility] Alkaline 59 35 - 104 U/L [facility] phosphatase [facility] AST 17 10 - 35 U/L [facility] ALT 8 5 - 50 U/L [facility] Total bilirubin 0.7 0.0 - 1.2 mg/dL [facility] Specimen Plasma specimen Performing Organization Address City/State/Zipcode Phone Number [address] [address] PATHOLOGY AND GENOMIC [facility] MEDICINE, [facility] [address] [facility] [address] [place] [phone] EMERGENCY CARE CENTER after 02/11/2018 Insurance Type Payer Benefit Subscriber ID Effective Phone Address Plan / Dates Group HMO [employer] xxxxxxxxx [id number] [employer] resent [facility] Advance Directives Patient has advance care planning documents on file. For more information, gonsalo carpenter contact: [facility] [address] [place] [address]
--- OUTSIDE RECORDS SUMMARY | 2019-02-12 17:51 | XMS REPORT ---
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 Allergies, Adverse Reactions, Alerts Allergy Name Allergy Type Status Severity Reaction(s) Onset Date Inactive Date Treating Clinician Comments No Known Allergies DA Active U 2016-03-31 00:00:00 Medications This patient has no known medications. Encounters Start Date/Time End Date/Time Encounter Type Admission Type Attending [facility] Facility Care Department Encounter ID 2019-02-13 00:00:00 2019-02-13 00:00:00 Outpatient [facility] [id number] 2019-02-06 14:00:12 2019-02-06 14:00:12 Outpatient [facility] [id number] 2019-02-06 00:00:00 2019-02-06 00:00:00 Outpatient [facility] [id number] 2019-01-30 00:00:00 2019-01-30 00:00:00 Outpatient [facility] [id number] 2019-01-30 00:00:00 2019-01-30 00:00:00 Outpatient [facility] [id number] 2019-01-30 00:00:00 2019-01-30 00:00:00 Outpatient [facility] [id number] 2019-01-23 00:00:00 2019-01-23 00:00:00 Outpatient [facility] [id number] 2019-01-23 00:00:00 2019-01-23 00:00:00 Outpatient [facility] [id number] 2019-01-14 00:00:00 2019-01-14 00:00:00 Outpatient [facility] [id number] 2018-12-30 13:19:22 2018-12-30 13:19:22 Outpatient [facility] [id number] 2018-12-30 00:00:00 2018-12-30 00:00:00 Outpatient [facility] [id number] 2018-12-24 00:00:00 2018-12-24 00:00:00 Outpatient [facility] [id number] 2018-12-23 07:33:55 2018-12-23 07:33:55 Outpatient [facility] [id number] 2018-12-23 04:02:18 2018-12-23 04:02:18 Outpatient [facility] [id number] 2018-12-23 00:00:00 2018-12-23 00:00:00 Outpatient [facility] [id number] 2018-12-17 00:00:00 2018-12-17 00:00:00 Outpatient [facility] [id number] 2018-12-11 00:00:00 2018-12-11 00:00:00 Outpatient [facility] [id number] 2018-12-10 00:00:00 2018-12-10 00:00:00 Outpatient [facility] [id number] 2018-12-10 00:00:00 2018-12-10 00:00:00 Outpatient [facility] [id number] 2018-12-04 00:00:00 2018-12-04 00:00:00 Outpatient [facility] [id number] 2018-12-04 00:00:00 2018-12-04 00:00:00 Outpatient [facility] [id number] 2018-12-03 00:00:00 2018-12-03 00:00:00 Outpatient [facility] [id number] 2018-12-02 09:10:41 2018-12-02 09:10:41 Outpatient [facility] [id number] 2018-12-02 09:01:49 2018-12-02 09:01:49 Outpatient [facility] [id number] 2018-12-02 00:00:00 2018-12-02 00:00:00 Outpatient [facility] [id number] 2018-11-26 00:00:00 2018-11-26 00:00:00 Outpatient [facility] [id number] 2018-11-22 00:00:00 2018-11-22 00:00:00 Outpatient [facility] [id number] 2018-11-21 00:00:00 2018-11-21 00:00:00 Outpatient [facility] [id number] 2018-11-20 11:24:09 2018-11-20 11:24:09 Outpatient [facility] [id number] 2018-11-20 10:47:34 2018-11-20 10:47:34 Outpatient [facility] [id number] 2018-11-20 00:00:00 2018-11-20 00:00:00 Outpatient [facility] [id number] 2018-11-04 00:00:00 2018-11-04 00:00:00 Outpatient [facility] [id number] 2018-10-31 10:13:22 2018-10-31 10:13:22 Outpatient [facility] [id number] 2018-10-31 10:10:03 2018-10-31 10:10:03 Outpatient [facility] [id number] 2018-10-30 00:00:00 2018-10-30 00:00:00 Outpatient [facility] [id number] 2018-10-30 00:00:00 2018-10-30 00:00:00 Outpatient [facility] [id number] 2018-10-02 13:50:55 2018-10-02 13:50:55 Outpatient [facility] [id number] 2018-10-01 00:00:00 2018-10-01 00:00:00 Outpatient [facility] [id number] 2018-09-19 08:43:08 2018-09-19 08:43:08 Outpatient [facility] [id number] 2018-09-03 07:45:17 2018-09-03 07:45:17 Outpatient [facility] [id number] 2018-09-02 00:00:00 2018-09-02 00:00:00 Outpatient [facility] [id number] 2018-08-06 11:15:09 2018-08-06 11:15:09 Outpatient [facility] [id number] 2018-07-16 10:34:12 2018-07-16 10:34:12 Outpatient [facility] [id number] 2018-07-16 00:00:00 2018-07-16 00:00:00 Outpatient [facility] [id number] 2018-07-09 10:53:02 2018-07-09 10:53:02 Outpatient [facility] [id number] 2018-06-28 00:00:00 2018-06-28 00:00:00 Outpatient [facility] [id number] 2018-06-25 12:10:52 2018-06-25 12:10:52 Outpatient [facility] [id number] 2018-06-25 10:59:53 2018-06-25 10:59:53 Outpatient [facility] [id number] 2018-06-17 09:46:19 2018-06-17 09:46:19 Outpatient [facility] [id number] 2018-06-17 00:00:00 2018-06-17 00:00:00 Outpatient [facility] [id number] 2018-04-04 00:00:00 2018-04-04 00:00:00 Outpatient [facility] [id number] 2018-03-19 18:53:23 2018-03-19 18:53:23 Outpatient [facility] [id number]
[2019-02-12] MEDS ORDERED: SODIUM CHLORIDE 0.9% 1000ML 2,000 ML ONE (17:57)
[2019-02-12] MEDS ORDERED: LIDOCAINE 2%/ EPINEPHRINE 20ML MDV ONE (18:11)
[2019-02-12] MEDS ORDERED: ONDANSETRON HCL INJ 2MG/ML 2ML 2 MG/ML VIAL IV ONE (18:35)
[2019-02-12] MEDS ORDERED: MORPHINE SULFATE INJ 4 MG/ML INJ 1ML ONE (18:42)
[2019-02-12] MEDS ORDERED: ONDANSETRON HCL INJ 2MG/ML 2ML 2 MG/ML VIAL ONE (18:43)
[2019-02-12] MEDS ORDERED: MORPHINE SULFATE INJ 4 MG/ML INJ 1ML IV ONE (18:45)
[2019-02-12] MEDS ORDERED: MORPHINE SULFATE 5 MG/ML VIAL IV ONE (18:45)
[2019-02-12] MEDS ORDERED: OXYTOCIN INJ 10 UNIT/ML VIAL IV ONE (19:00)
[2019-02-12 19:04] LABS: BASOPHILS % 0.2 % (0.0-1.0); EOSINOPHILS # (AUTO) 0.1 (0.0-0.4); EOSINOPHILS % 0.4 % (0.0-6.0); LYMPHOCYTES # (AUTO) 2.7 (1.0-3.2); LYMPHOCYTES % 23.1 % (18.0-39.1); MEAN CORPUSCULAR HEMOGLOBIN 22.2 pg (28-32); MEAN CORPUSCULAR VOLUME 73.9 fL (81-99); MONOCYTES # (AUTO) 0.5 (0.2-0.8); MONOCYTES % 4.1 % (4.4-11.3); NEUTROPHILS # (AUTO) 8.3 (2.1-6.9); NEUTROPHILS % 71.7 % (38.7-80.0); PLATELET COUNT 372 x10e3/uL (140-360); RED BLOOD COUNT 4.06 x10e6/uL (3.6-5.1); RED CELL DISTRIBUTION WIDTH 17.2 % (11.7-14.4)
[2019-02-12 19:17] LABS: ALANINE AMINOTRANSFERASE 27 IU/L (0-55); ALBUMIN 2.9 g/dL (3.5-5.0); ALBUMIN/GLOBULIN RATIO 0.6 (0.8-2.0); ALKALINE PHOSPHATASE 167 IU/L (40-150); ANION GAP 14.2 mmol/L (8-16); BLOOD UREA NITROGEN < 5 mg/dL (7-26); CALCIUM 9.3 mg/dL (8.4-10.2); CARBON DIOXIDE 19 mmol/L (22-29); CHLORIDE 104 mmol/L (98-107); CREATININE, SERUM 0.67 mg/dL (0.57-1.11); EST GLOMERULAR FILTRATION RATE > 60 ML/MIN (60-); GLUCOSE 103 mg/dL (74-118); POTASSIUM 3.2 mmol/L (3.5-5.1); SODIUM 134 mmol/L (136-145)
[2019-02-12 19:20] LABS: BUN/CREATININE RATIO 7 (6-25)
== END 2019-02-12 19:45 | disposition other institution (70) ==
LOC: ER 17:47
DX: O80 Encounter for full-term uncomplicated delivery (principal); Z3A.40 40 weeks gestation of pregnancy; Z37.0 Single live birth
CPT/HCPCS: 36415; 59409; 80053; 85025; 86850; 86870; 86880; 86900; 86905; 88307; 99001; 99284; J2001; J2270; J2405; J2590; J7030